=== PATIENT | male | born 1950 | race Two or more races ===

== ENCOUNTER 2022-09-22 07:24 | Outpatient (CLI) | payer OTHER | END 2022-09-22 07:30 | disposition home or self-care (01) | LOC: NUCLEAR 07:24 | PROVIDERS: ATTEND Internal Medicine | DX: I25.118 Atherosclerotic heart disease of native coronary artery with other forms of angina pectoris (principal); I11.9 Hypertensive heart disease without heart failure; E11.9 Type 2 diabetes mellitus without complications; E78.2 Mixed hyperlipidemia | CPT/HCPCS: 78452; 93017; A9500; J0153 ==

== ENCOUNTER 2022-11-24 05:50 | Day surgery (SDC) | payer OTHER ==
[~2022-11-24] VITALS: Ht 165.1 cm; Wt 79.4 kg
[~2022-11-24 05:50] MED LIST: ATORVASTATIN CA10 MG PO; COZAAR100 MG PO; GLUMETZA500 MG PO; HORIZANT600 MG PO; TAMS0.4C PO; ZOVIRAX400 MG PO; [UNRECOGNIZED DRUG - CODE] PO
== END 2022-11-24 12:40 | disposition home or self-care (01) ==
LOC: CIR.AMB 05:50
PROVIDERS: ATTEND Surgery
DX: K81.1 Chronic cholecystitis (principal); I10 Essential (primary) hypertension; E11.9 Type 2 diabetes mellitus without complications; Z20.822 Contact with and (suspected) exposure to COVID-19